=== PATIENT | female | born 1955 | race Caucasian/White ===

== ENCOUNTER 2023-01-25 11:50 | Emergency (ER) | payer OTHER, SELFPAY ==
[2023-01-25 11:51] VITALS: BP 135/68; PULSE 83; RESP 16; TEMP 36.6; O2SAT 96; BMI 27.1
--- NOTE | 2023-01-25 12:28 | CT_ITS ---
STUDY: CT BRAIN WITHOUT CONTRAST REASON FOR EXAM: Female, 67 years old. Visual loss in right eye x three days RADIATION DOSAGE (If Supplied By Facility): CTDIvol = ( 44.99 ) mGy, DLP = ( 779.24 ) mGycm TECHNIQUE: Transaxial CT imaging of the brain was performed without administration of intravenous contrast material. Individualized dose optimization techniques were used for this CT. COMPARISON: No relevant priors. FINDINGS: Normal soft tissue structures. Normal calvarium. Normal size ventricles and extra-axial spaces for the patient''s age. Normal white matter tracts of the cerebral hemispheres. Normal basal ganglia and thalami. Normal brainstem. Normal cerebellum. There is no intracranial hemorrhage. There are no findings of an acute ischemic infarction. Normal visualized paranasal sinuses. CT/Brain/Head without Contrast IMPRESSION: Normal unenhanced CT scan of the brain. Electronically Signed: Bill Douglas MD at 13:34 EDT ,
[2023-01-25] MEDS: 0.9% Normal Saline 1,000 ML 1000 ML IV (12:40)
[2023-01-25 12:53] LABS: Absolute Lymphocyte Count 1.46 X10^3/uL (0.83-4.51); Absolute Neutrophil Count 4.4 X10^3/uL (2.0-7.7); Basophil# 0.05 X10^3/uL; Basophil% 0.8 % (0-1); Eosinophil# 0.14 X10^3/uL; Eosinophils% 2.2 % (0-5); Hematocrit 38.4 % (37-47); Hemoglobin 12.4 g/dL (12.0-15.0); Lymphocyte # 1.46 X10^3/ul (0.83-4.51); Lymphocyte % 22.7 % (19-41); Mean Corp Hgb Conc 32.3 g/dL (32-36); Mean Corpuscular Hgb 30.1 pg (27.0-32.0); Mean Corpuscular Volume 93.2 fL (81-99); Monocyte# 0.34 X10^3/uL; Monocyte% 5.3 % (0-10); NRBC Flagged by Analyzer 0 % (0-5); Neutrophil # 4.44 X10^3/uL (2.7-7.7); Neutrophil % 68.8 % (47-70); Platelet Count 257 K/mm3 (150-450); RBC Distribution Width CV 14.4 % (11.6-14.6); RBC Distribution Width SD 49.2 fl (35.1-43.9); Red Blood Count 4.12 M/mm3 (4.2-5.4); White Blood Count 6.4 K/mm3 (4.4-11.0)
--- NOTE | 2023-01-25 13:04 | EX.ED.VIS.EY ---
HPI History of Present Illness Chief Complaint: Eye Problem Informant: patient Onset/Context/Timing Location: Right Eye Onset: Days (2) Context: Gradual Onset Timing: Continuous Worsened by: Nothing Relieved by: Nothing Associated Symptoms Associated Symptoms - Eyes: Foreign body sensation; Negative for Burning, Crusting, Drainage, Eyelid swelling, Itching, Matting, Pain, Photophobia or Redness Visual Changes: right: Visual field cut History of injury: No Visual correction: Glasses Narrative Narrative: Patient presents with visual loss from her right eye that occurred 2 days ago. Patient states it came on gradually. Patient states she lost the peripheral vision in her eyes and then she states that her vision went completely black. Patient states that today it looks like it is a tannish-red area with a white rim around the lower portion of her vision. Patient denies any headaches. Patient states she normally wears glasses. Patient denies any trauma or injury. However, patient does state that it feels like there may be something in her eye. Patient denies any paresthesias or weakness. Patient went to urgent care and was referred to the emergency department because they were unable to see a red reflex out of her right eye. PFSH PFSH Medical History no medical history no medical history Allergy/AdvReac Type Severity Reaction Status Date / Time No Known Allergies Allergy Verified 01/25/23 11:54 Surgical History no surgical history no surgical history Social History Smoking Status: Never smoker ROS ROS ED Constitutional Constitutional ED: Denies chills or fever(s) Eyes Eyes: Reports change in vision; Denies diplopia ENT ENT ED: Denies rhinorrhea or sore throat Cardiovascular Cardiovascular: Denies chest pain or palpitations Respiratory/Chest Respiratory/Chest: Denies cough or dyspnea Gastrointestinal Gastrointestinal: Denies nausea or vomiting Genitourinary Genitourinary ED: Denies dysuria or hematuria Musculoskeletal Musculoskeletal: Denies back pain or neck pain Integumentary Denies abscess or rash Neurologic Neurologic: Reports headache(s); Denies weakness Allergic/Immunologic Allergic/Immunologic ED: Denies mouth swelling or urticaria EXAM Physical Exam Const Vital Signs: 01/25/23 11:51 Temperature 97.8 F Temperature Source Temporal Pulse Rate 83 Respiratory Rate 16 Blood Pressure 135/68 H Blood Pressure Mean 90 Pulse Ox 96 Oxygen Delivery Method Room Air Positive well nourished and well developed General Appearance ED: well developed and NAD HEENT Reports moist mucous membranes HEENT Narrative: There is no tenderness over the temporal artery. Negative for tenderness Eyes Eyes Narrative: Pupils are equal, round, and reactive to light bilaterally. Extraocular muscles are intact. Anterior chamber was clear. There is no hyphema. There is a red reflex noted bilaterally. Funduscopic examination shows some pallor to the lateral retina. There is a questionable retinal detachment noted over that area. Neck supple and no JVD Resp normal respiratory effort and clear to auscultation bilaterally Cardio regular rate, regular rhythm and no murmurs GI normal to inspection, nondistended, normoactive bowel sounds and non-tender Palpation: soft Extremity normal to inspection General Extremety ED: Negative for edema or tenderness General Extremity: Negative for edema Neuro oriented x3, CN's II-XII intact bilaterally and no sensory deficits noted Sensorium / Orientation: alert Motor Exam: strength 5/5 throughout Psych mental status grossly normal Skin no rashes or lesions noted MDM MDM MDM Narrative Medical decision making narrative: Differential diagnosis includes retinal detachment, stroke, central retinal artery occlusion, and retinal vein occlusion. CT scan of the brain will be obtained to assess for stroke. CBC will be obtained to assess for leukocytosis and anemia. Comprehensive metabolic profile will be obtained to assess for electrolyte abnormality, renal function, and hepatic function. PT with INR and PTT will be obtained to assess for coagulopathy. Lab Data Attestation: I reviewed the patient's lab results. Lab results narrative: CBC was reviewed and was essentially within normal limits. Comprehensive metabolic profile was reviewed and was within normal limits. Labs: Laboratory Results - last 24 hr 01/25/23 12:40 WBC 6.4 RBC 4.12 L Hgb 12.4 Hct 38.4 MCV 93.2 MCH 30.1 MCHC 32.3 RDW Std Deviation 49.2 H RDW Coeff of Alli 14.4 Plt Count 257 MPV 9.0 Immature Gran % (Auto) 0.200 Neut % (Auto) 68.8 Lymph % (Auto) 22.7 [place] % (Auto) 5.3 Eos % (Auto) 2.2 Baso % (Auto) 0.8 Absolute Neuts (auto) 4.4 Absolute Lymphs (auto) 1.46 Nucleated RBC % 0 Treatment and Re-Evaluation Narrative: [id number] ultrasound was performed. There is evidence of a retinal detachment. Lens was in place. Case was discussed with Dr. Riggs from ophthalmology. He will see the patient today in his office. Patient was instructed to go directly there. Patient understood and was agreeable with the plan. All questions were answered. Discharge Plan Triage Chief Complaint: Eye Problem ED Provider: Darrian Venegas Dx/Rx/DC Orders Clinical Impression: Retinal detachment, right Instructions: ED Retinal Detachment Primary Care Provider: Care Physician,No Primary Referrals: Nithin Riggs MD [Med Staff - Active Staff] - As soon as possible Care Physician,No Primary [Primary Care Provider] - Activity Restrictions/Additional Instructions: Go directly to the [facility]. Dr. Riggs, title insurance agent will see you there at 345. Disposition Disposition: Home, Self Care Discharge Date/Time: 01/25/23 15:39
[2023-01-25 13:09] LABS: International Normalized Ratio 0.9; Partial Thromboplast Time 28.2 Seconds (24.1-36.2); Prothrombin Time (Protime)PT. 12.5 SECONDS (11.7-14.9)
[2023-01-25 13:10] LABS: ALB/GLOB Ratio 1.1 RATIO (0.9-2.4); AST(SGOT) 16 U/L (15-37); Alanine Aminotransfer ALT/SGPT 23 U/L (13-56); Albumin, Serum 3.5 g/dL (3.2-5.0); Alkaline Phosphatase 67 U/L (45-117); Anion Gap 2 (5-15); BUN 11 mg/dL (7-18); Calcium,Total 9.2 mg/dL (8.5-10.1); Chloride 109 mmol/L (98-107); Creatinine, Serum 0.65 mg/dL (0.55-1.02); EST Glomerular Filtration Rate 97 mL/min (>60); Est Glom Filt Rate - Afr Amer 117 mL/min (>60); Estimated Creatinine Clearance 38.68 ml/min; Globulin 3.2 g/dL (2.2-4.2); Glucose 89 mg/dL (74-106); Potassium 4.2 mmol/L (3.5-5.1); Protein, Total 6.7 g/dL (6.4-8.2); Sodium Level 141 mmol/L (136-145)
[2023-01-25 14:00] VITALS: RESP 16
== END 2023-01-25 15:39 | disposition home or self-care (01) ==
PROVIDERS: Emergency Provider Emergency Medicine; Visit Provider Emergency Medicine
DX: H33.21 Serous retinal detachment, right eye (principal)
CPT/HCPCS: 70450; 80053; 85025; 85610; 85730; 99283; J7030; A4216

== ENCOUNTER → 2023-05-26 | Outpatient (CLI) | payer OTHER, SELFPAY ==
--- NOTE | 2023-05-26 12:37 | BD_ITS ---
STUDY: DUAL ENERGY X-RAY ABSORPTIOMETRY / DXA REASON FOR EXAM: Female, 67 years old. S52.571D TECHNIQUE: Bone Mineral Density (BMD) measurements of lumbar spine and bilateral hips were obtained. COMPARISON: None. FINDINGS: Lumbar Spine (L1-L4): g/cm2 (0.993) / T-score (-0.5) / Z-score (1.5) Findings are suggestive of normal bone density with a low fracture risk. Left Femur Total: g/cm2 (0.740) / T-score (-1.7) / Z-score (-0.2) Left Femoral Neck: g/cm2 (0.601) / T-score (-2.2) / Z-score (-0.5) Right Femur Total: g/cm2 (0.656) / T-score (-2.3) / Z-score (-0.9) Right Femoral Neck: g/cm2 (0.560) / T-score (-2.6) / Z-score (-0.9) BD/Dexa Bone Density Study IMPRESSION: The patient is considered osteoporotic as outlined below according to World Tyrese Organization (WHO) criteria with a high fracture risk. Reference Information: The T-score is the number of standard deviations above or below the standard which is normal for young adults at their peak bone mineral density. The World Health Organization (WHO) interprets the T-scores as follows: Above -1 Normal bone density Between -1 and -2.5 Osteopenia Equal to / or below -2.5 Osteoporosis As a practical clinical guideline, osteopenia may be graded as follows: Mild -1 through -1.5 Moderate -1.6 through -2.0 Severe -2.1 through -2.4 The Z-score is the number of standard deviations above or below age-matched controls. A Z-score of less than -1.5 would be considered abnormal. References: 1. NIH Osteoporosis and Related Bone Diseases www osteo.org 2. International Society for Clinical Densitometry www iscd.org 3. National Osteoporosis Foundation www nof.org Electronically Signed: Fabio Patel MD at 13:29 EDT ,
== END | disposition home or self-care (01) ==
LOC: OPBD 12:32
PROVIDERS: Referring Provider Student in an Organized Health Care Education/Training Program; Visit Provider Student in an Organized Health Care Education/Training Program
DX: S52.571D Other intraarticular fracture of lower end of right radius, subsequent encounter for closed fracture with routine healing (principal)
CPT/HCPCS: 77080

== ENCOUNTER 2023-11-10 20:43 | Inpatient (IN) | payer OTHER, MEDICARE, SELFPAY ==
[2023-11-10 20:43] VITALS: BP 156/83; PULSE 80; RESP 16; TEMP 36.2; O2SAT 99
--- NOTE | 2023-11-10 20:46 | RAD_ITS ---
STUDY: X-RAY - PELVIS AND RIGHT HIP REASON FOR EXAM: Female, 68 years old. injury TECHNIQUE: 3 views of the pelvis and hip. COMPARISON: None. FINDINGS: There is a non-specific bowel gas pattern. Normal visualized soft tissue structures. Normal bilateral iliac wings, sacroiliac joints and visualized sacrum. Normal bilateral superior and inferior pubic rami. Normal pubic symphysis. Normal bilateral ischial tuberosities. Acute nondisplaced fracture of the intertrochanteric femur. Normal acetabulum. Normal hip joint. RAD/HIP, UNI W/ Pelvis 2-3 Views IMPRESSION: Acute nondisplaced fracture of the intertrochanteric femur. Electronically Signed: Bill Douglas MD at 21:20 EDT ,
--- NOTE | 2023-11-10 21:26 | RAD_ITS ---
STUDY: X-RAY CHEST REASON FOR EXAM: Female, 68 years old. Preop TECHNIQUE: Single AP portable view of the chest. COMPARISON: None. FINDINGS: The lungs are clear and expanded. There is no demonstrated pleural abnormality. Normal size heart. Normal mediastinum and jovanny. Normal visualized pulmonary arteries. Normal visualized aortic arch and descending thoracic aorta. Normal visualized thoracic spine. Normal visualized ribs, clavicles, and shoulders. There is no demonstrated abnormality of the visualized soft tissue structures of the upper abdomen. RAD/Chest 1 View (Portable) IMPRESSION: Normal x-ray examination of the chest. Electronically Signed: Bill Douglas MD at 21:59 EDT ,
[2023-11-10] MEDS: Morphine 2 MG/ML Syringe IV (21:42)
[2023-11-10] MEDS: Ondansetron 4 MG/2 ML Vial IV (21:42)
[2023-11-10 21:46] VITALS: BP 145/78; PULSE 90; RESP 18; O2SAT 98
[2023-11-10 21:50] LABS: Absolute Lymphocyte Count 2.02 X10^3/uL (0.83-4.51); Absolute Neutrophil Count 5.8 X10^3/uL (2.0-7.7); Basophil# 0.06 X10^3/uL; Basophil% 0.7 % (0-1); Eosinophil# 0.17 X10^3/uL; Hematocrit 38.3 % (37-47); Hemoglobin 12.4 g/dL (12.0-15.0); Lymphocyte # 2.02 X10^3/ul (0.83-4.51); Lymphocyte % 23.7 % (19-41); Mean Corp Hgb Conc 32.4 g/dL (32-36); Mean Corpuscular Hgb 29.8 pg (27.0-32.0); Mean Corpuscular Volume 92.1 fL (81-99); Mean Platelet Vol. 9.3 fl (6.2-12.0); Monocyte# 0.44 X10^3/uL; Monocyte% 5.2 % (0-10); NRBC Flagged by Analyzer 0 % (0-5); Neutrophil # 5.81 X10^3/uL (2.7-7.7); Neutrophil % 67.9 % (47-70); Platelet Count 281 K/mm3 (150-450); RBC Distribution Width CV 13.8 % (11.6-14.6); Red Blood Count 4.16 M/mm3 (4.2-5.4); White Blood Count 8.5 K/mm3 (4.4-11.0)
--- NOTE | 2023-11-10 21:51 | ED.VIS.LOWEX ---
HPI History of Present Illness Chief Complaint: Lower Extremity Injury Detail of Chief Complaint: Patient injured her right hip status post fall Informant: patient and spouse/S.O. Occured/Mechanism Mechanism/Context: Yes injury, Yes blunt trauma and Yes fall Comment: Patient was walking up steps. She landed on the right side of her hip. Onset/Context/Timing Onset: Hours Context: Sudden Onset Timing: Continuous Quality of Pain: Aching Location: Right groin Current Severity: Gone Maximum Severity: Moderate Worsened by: Logrolling Relieved by: Remaining still Associated Symptoms Associated Symptoms: Positive for Loss of Funtion; Negative for Parasthesia or Weakness Narrative Narrative: Patient is 68-year-old woman. She has no past medical history. She is on no medication. She has no allergies. She presents after fall. She was unable to bear weight on her right side. She states she landed on the right trochanteric region. She complains of pain in the right inguinal area. Denies paresthesia, anesthesia motors. She denies head trauma. Denies loss of conscious. Denies neck pain. Denies paresthesia, anesthesia medics. Denies chest pain or shortness of breath. Denies abdominal pain. Tetanus Immunization: Unknown Prior similar symptoms: No Recent Illness/Hospitalization: No PFSH PFSH Medical History no medical history no medical history Home Medications NK 11/10/23 [History Last Taken Unknown] Allergy/AdvReac Type Severity Reaction Status Date / Time No Known Allergies Allergy Verified 11/10/23 20:46 Social History Smoking Status: Never smoker ROS ROS ED Constitutional Constitutional ED: Denies fever(s), subjective or sweats Eyes Eyes: Denies blurry vision or change in vision ENT ENT ED: Denies rhinorrhea or sore throat Cardiovascular Cardiovascular: Denies chest pain or palpitations Respiratory/Chest Respiratory/Chest: Denies cough, dyspnea or dyspnea on exertion Gastrointestinal Gastrointestinal: Denies abdominal pain, nausea or vomiting Genitourinary Genitourinary ED: Denies dysuria, hematuria or urinary frequency Musculoskeletal Musculoskeletal: Denies arthralgias, back pain, myalgias or neck pain Integumentary Denies rash Neurologic Neurologic: Denies headache(s), paresthesias or weakness Psychiatric Psychiatric: Denies anxiety or depression Endocrine Endocrinology: Denies polydipsia, polyphagia or polyuria Hematologic/Lymphatic Hematologic/Lymphatic: Denies easy bleeding or easy bruising EXAM Physical Exam Const Vital Signs: 11/10/23 20:43 11/10/23 21:46 Temperature 97.1 F L Temperature Source Temporal Pulse Rate 80 90 Respiratory Rate 16 18 Blood Pressure 156/83 H 145/78 H Blood Pressure Mean 107 100 Pulse Ox 99 98 Oxygen Delivery Method Room Air Room Air Positive well nourished and well developed General Appearance ED: well developed and NAD HEENT normocephalic and atraumatic Eyes PERRL Eyes Narrative: Extraocular muscles are intact. Sclera is anicteric. There is no subconjunctival hemorrhage. Neck full ROM and supple Chest Wall inspection of chest normal and palpation of chest normal Resp normal respiratory effort, no retractions and clear to auscultation bilaterally Cardio regular rate, regular rhythm, S1 normal heart sound, S2 normal heart sound and no murmurs GI non-tender, non-distended and no masses Back/Spine no CVA tenderness Thoracic Spine / Upper Back: Negative for thoracic spinal tenderness Lumbar Spine / Lower Back: Negative for lumbar spinal tenderness Extremity Extremity Narrative: There is no shortening. Logrolling causes discomfort. There is no neurovasc optimized. Neuro oriented x3, CN's II-XII intact bilaterally, moves all extremities and no sensory deficits noted Sensorium / Orientation: alert Motor Exam: strength 5/5 throughout Psych mental status grossly normal Skin no wounds Lesions: no lesions Rashes: no rashes MDM MDM Lab Data Attestation: I reviewed the patient's lab results. Lab results narrative: CBC is unremarkable. BMP is unremarkable. Labs: Laboratory Results - last 24 hr 11/10/23 21:40 WBC 8.5 RBC 4.16 L Hgb 12.4 Hct 38.3 MCV 92.1 MCH 29.8 MCHC 32.4 RDW Std Deviation 47.0 H RDW Coeff of Alli 13.8 Plt Count 281 MPV 9.3 Immature Gran % (Auto) 0.500 Neut % (Auto) 67.9 Lymph % (Auto) 23.7 [place] % (Auto) 5.2 Eos % (Auto) 2.0 Baso % (Auto) 0.7 Absolute Neuts (auto) 5.8 Absolute Lymphs (auto) 2.02 Nucleated RBC % 0 Sodium 138 Potassium 4.1 Chloride 103 Carbon Dioxide 31.0 Anion Gap 4 L BUN 19 H Creatinine 0.75 Est GFR (MDRD) Af Amer 99 Est GFR (MDRD) Non-Af 82 BUN/Creatinine Ratio 25.4 H Glucose 109 H Calcium 9.3 Radiography Chest X-Ray - ED: 1 View (Single view portable chest x-ray was independently reviewed by me and negative for pneumothorax, hemothorax fractured ribs. Cardiac silhouette size normal. Lung parenchyma is normal.) and Read by ED Physician (Three-view x-ray of the right hip reveals a intertrochanteric fracture.) Diagnostic Testing: Clinical Impression(s) from Imaging Studies Hip/Pelvis X-Ray 11/10/23 20:46 IMPRESSION: Acute nondisplaced fracture of the intertrochanteric femur. Electronically Signed: Bill Douglas MD at 21:20 EDT Reading Location ID and State: [employer] / [employer] Tel , Service support , Chest X-Ray 11/10/23 21:26 IMPRESSION: Normal x-ray examination of the chest. Electronically Signed: Bill Douglas MD at 21:59 EDT Reading Location ID and State: [id number] / [employer] , Service support , Management Discussion w/another healthcare provider: Hospitalist and [employer] Treatment and Re-Evaluation Narrative: Appropriate blood work, chest x-ray was obtained for prehospital risk stratification. Will contact hospitalist for admission and Dr. Becker and for orthopedics. Dr. John Paul Chan and was made aware of patient. Patient be admitted to hospitalist service Discharge Plan Dx/Rx/DC Orders Clinical Impression: Injury due to fall, Elevated blood pressure reading, Closed intertrochanteric fracture of right femur Disposition Disposition: Acute Care Hospital [facility]
[2023-11-10 22:03] LABS: Anion Gap 4 (5-15); BUN 19 mg/dL (7-18); BUN/Creat Ratio 25.4 RATIO (10-20); Calcium,Total 9.3 mg/dL (8.5-10.1); Chloride 103 mmol/L (98-107); Creatinine, Serum 0.75 mg/dL (0.55-1.02); EST Glomerular Filtration Rate 82 mL/min (>60); Est Glom Filt Rate - Afr Amer 99 mL/min (>60); Glucose 109 mg/dL (74-106); Potassium 4.1 mmol/L (3.5-5.1); Sodium Level 138 mmol/L (136-145)
--- NOTE | 2023-11-10 22:13 | HP.PCM.HOS_ITS ---
HPI - General General Date of Admission: 11/10/23 HPI Narrative NILAY RIGGINS, is a 68 F who presents to the hospital after mechanical fall coming out of her barn. She fell on her right side and could not put any weight on it. She denies hitting her head or any loss of consciousness. She denies any chest pain palpitations or lightheadedness prior to the fall and states that it was purely a mechanical fall. She has no significant medical history and takes no medications. Hip x-ray demonstrates an acute nondisplaced fracture of the intertrochanteric femur on the right. [facility] Medical History no medical history Home Medications NK 11/10/23 [History Last Taken Unknown] Allergy/AdvReac Type Severity Reaction Status Date / Time No Known Allergies Allergy Verified 11/10/23 20:46 Family History (Updated 11/10/23 @ 22:[address] Bernard Roman MD) Other Heart disease Surgical History (Updated 11/10/23 @ 22:[address] Bernard Roman MD) Status post wrist surgery Social History Smoking Status: Never smoker ROS Constitutional Constitutional: Denies chills, fatigue, fever(s) or malaise Eyes Eyes: Denies blurry vision ENT HEENT: Denies headache(s) or nasal discharge Cardiovascular Cardiovascular: Denies chest pain, dyspnea on exertion or syncope Respiratory/Chest Respiratory/Chest: Denies cough, shortness of breath at rest or shortness of breath with exertion Gastrointestinal Gastrointestinal: Denies constipation, diarrhea, nausea or vomiting Genitourinary Genitourinary: Denies dysuria Musculoskeletal Musculoskeletal: Reports joint pain Neurologic Neurologic: Denies focal weakness, numbness or tremor(s) Psychiatric Psychiatric: Denies anxiety or depression Vital Signs Vital Signs Vital Signs: 11/10/23 20:43 11/10/23 21:46 Temperature 97.1 F L Temperature Source Temporal Pulse Rate 80 90 Respiratory Rate 16 18 Blood Pressure 156/83 H 145/78 H Blood Pressure Mean 107 100 Pulse Ox 99 98 Oxygen Delivery Method Room Air Room Air Physical Exam Narrative General: Alert, Oriented x3, Cooperative, No apparent distress HEENT: Atraumatic, PERRLA, EOMI, Normocephalic Oral: Moist Mucosa Neck: Supple, No JVD Lungs: Clear to auscultation, Normal air movement, No rhonchi, No wheeze, No rales Cardiovascular: Regular rate, Regular Rhythm, Normal S1, Normal S2, No murmurs Abdomen: Soft, Non Tender, Non-Distended, No Hepato-splenomegaly Extremities: No edema, Capillary Refill Less than 3 Seconds Skin: No rashes, No breakdown Musculoskeletal: Mild tenderness to right hip with palpation Neurological: No focal neurological deficits, Motor Exam 5/5 strength throughout, Sensory exam intact to light touch and pain Psych/Mental Status: Normal Affect, Appropriate Results Lab / Micro Data 11/10/23 21:40 11/10/23 21:40 Labs: Laboratory Results - last 24 hr 11/10/23 21:40: WBC 8.5, RBC 4.16 L, Hgb 12.4, Hct 38.3, MCV 92.1, MCH 29.8, MCHC 32.4, RDW Std Deviation 47.0 H, RDW Coeff of Alli 13.8, Plt Count 281, MPV 9.3, Immature Gran % (Auto) 0.500, Neut % (Auto) 67.9, Lymph % (Auto) 23.7, [place] % (Auto) 5.2, Eos % (Auto) 2.0, Baso % (Auto) 0.7, Absolute Neuts (auto) 5.8, Absolute Lymphs (auto) 2.02, Nucleated RBC % 0, Sodium 138, Potassium 4.1, Chloride 103, Carbon Dioxide 31.0, Anion Gap 4 L, BUN 19 H, Creatinine 0.75, Est GFR (MDRD) Af Amer 99, Est GFR (MDRD) Non-Af 82, BUN/Creatinine Ratio 25.4 H, Glucose 109 H, Calcium 9.3 Imaging Radiology Impression Hip/Pelvis X-Ray 11/10/23 20:46 IMPRESSION: Acute nondisplaced fracture of the intertrochanteric femur. Electronically Signed: Bill Douglas MD at 21:20 EDT , Chest X-Ray 11/10/23 21:26 IMPRESSION: Normal x-ray examination of the chest. Electronically Signed: Bill Douglas MD at 21:59 EDT , Assessment & Plan Assessment/Plan (1) Closed intertrochanteric fracture of right femur: PLAN: Plan 1. Nondisplaced intertrochanteric fracture of the right femur status post mechanical fall ? Make n.p.o. at midnight ? Plan for orthopedic repair in the morning ? Low risk ? Continue with pain management ? PT/OT after surgery ? Consult to case management for discharge planning DVT: SCDs Charges/Coding Visit Charges Inpatient E&M: 84830 Init Hosp L2
[2023-11-10 22:35] VITALS: BP 155/79; PULSE 68; RESP 16; TEMP 36.9; O2SAT 100
--- NOTE | 2023-11-10 22:41 | CON.PCM.OR_ITS ---
HPI Consult Data Date of Consult: 11/10/23 HPI Narrative HPI Narrative: NILAY RIGGINS, is a 68 F who presents with a right hip fracture. Patient fell at home down a couple steps. No head injury or loss of consciousness. Patient unable to ambulate after this injury. Patient does not normally use any ambulatory aids. [facility] Medical History no medical history Home Medications NK 11/10/23 [History Last Taken Unknown] Allergy/AdvReac Type Severity Reaction Status Date / Time No Known Allergies Allergy Verified 11/10/23 20:46 Family History (Updated 11/10/23 @ 22:[address] Bernard Roman MD) Other Heart disease Surgical History (Updated 11/10/23 @ 22:[address] Bernard Roman MD) Status post wrist surgery Social History Smoking Status: Never smoker Vital Signs Vital Signs Vital Signs: 11/10/23 20:43 11/10/23 22:35 11/10/23 21:46 Temperature 97.1 F L 98.4 F Temperature Source Temporal Pulse Rate 80 68 90 Respiratory Rate 16 16 18 Blood Pressure 156/83 H 155/79 H 145/78 H Blood Pressure Mean 107 104 100 Pulse Ox 99 100 98 Oxygen Delivery Method Room Air Room Air Physical Exam Const alert, oriented x3, no apparent distress and well nourished General Appearance: cooperative and well developed Extremity normal capillary refill and no calf tenderness Extremity Narrative: Closed injury. Right hip pain. Normal motor and sensory function to the foot able to wiggle the toes dorsiflex and plantarflex the foot. Foot is warm and well-perfused. Lab / Micro Data 11/10/23 21:40 11/10/23 21:40 Labs: Laboratory Results - last 24 hr 11/10/23 21:40: WBC 8.5, RBC 4.16 L, Hgb 12.4, Hct 38.3, MCV 92.1, MCH 29.8, MCHC 32.4, RDW Std Deviation 47.0 H, RDW Coeff of Alli 13.8, Plt Count 281, MPV 9.3, Immature Gran % (Auto) 0.500, Neut % (Auto) 67.9, Lymph % (Auto) 23.7, [place] % (Auto) 5.2, Eos % (Auto) 2.0, Baso % (Auto) 0.7, Absolute Neuts (auto) 5.8, Absolute Lymphs (auto) 2.02, Nucleated RBC % 0, Sodium 138, Potassium 4.1, Chloride 103, Carbon Dioxide 31.0, Anion Gap 4 L, BUN 19 H, Creatinine 0.75, Est GFR (MDRD) Af Amer 99, Est GFR (MDRD) Non-Af 82, BUN/Creatinine Ratio 25.4 H, Glucose 109 H, Calcium 9.3 Imaging Radiology Impression Hip/Pelvis X-Ray 11/10/23 20:46 IMPRESSION: Acute nondisplaced fracture of the intertrochanteric femur. Electronically Signed: Bill Douglas MD at 21:20 EDT Reading Location ID and State: [facility] / [employer] Tel , Service support , Chest X-Ray 11/10/23 21:26 IMPRESSION: Normal x-ray examination of the chest. Electronically Signed: Bill Douglas MD at 21:59 EDT Reading Location ID and State: [id number] / [employer] Tel , Service support , I independently reviewed the imaging. Concur with radiologist report. Assessment & Plan Assessment/Plan (1) Closed intertrochanteric fracture of right femur: PLAN: 68-year-old female with a right intertrochanteric hip fracture. I dis cussed with the patient the diagnosis prognosis different treatment options including doing nothing versus surgery in the form of open reduction internal fixation with the CM/intramedullary nail. Patient will be admitted under the hospitalist service made n.p.o. at midnight. I discussed the case with the dye house hand they are unable to give me a time but they are aware of the case. They are cleared for surgery I discussed directly with the hospitalist. Bedrest for now. Plan for surgery tomorrow at some point. Risks of surgery discussed as well as a high risk generally of nonoperative treatment including high risk of fracture not healing difficulties with ambulation blood clots and pneumonia. Patient signed the consent form for right hip open reduction internal fixation I marked the right lower extremity. Pros and cons risks and benefits were discussed with the patient including but not limited to infection, pain, stiffness, bleeding, damage to surrounding structures, neurovascular injury, recurrence or retear, failure or wear of hardware or fixation, instability, fracture, deep vein thrombosis and pulmonary embolism, anesthetic risks, , patient dissatisfaction, need for further surgery and other risks. Patient understood and wished to proceed with surgery, and signed the informed consent documentation.
[2023-11-10 22:55] VITALS: BMI 28.0
[2023-11-10 22:57] VITALS: BP 150/81; PULSE 97; RESP 18; TEMP 36.6; O2SAT 98
[2023-11-11] VITALS (15 sets, daily range): BP systolic 125–160; BP diastolic 68–97; PULSE 83–115; RESP 16–18; TEMP 36.1–37; O2SAT 93–102
[2023-11-11] MEDS: oxyCODONE 5 MG Tablet PO ×2 (00:08→23:58)
[2023-11-11 05:14] LABS: Bacteria 0 SEEN /hpf (None Seen); Mucous, Urine 0 SEEN /hpf (<or=2+); Red Blood Cells-Urine 0 SEEN /hpf (0-5); Squamous Epithelial Cells - UA 0 SEEN /hpf (5-10); White Blood Cells 0 SEEN /hpf (0-5)
[2023-11-11 05:15] LABS: Color, Urine Yellow (Yellow); Glucose, Dipstick Normal (Normal); Ketone-Dipstick Negative (Negative); Leukocyte Esterase-Dipstick 25 /ul (Negative); Nitrite-Dipstick Negative (Negative); Occult Blood-Urine Negative /ul (Negative); Protein-Dipstick Negative (Negative); Specific Gravity, Urine 1.015 (1.002-1.030); Urine Bilirubin Dipstick Negative (Negative); Urine Clarity Clear (Clear); Urine Urobilinogen Normal (Normal)
--- NOTE | 2023-11-11 05:55 | EKG12_ITS ---
Test Reason : PREOP Blood Pressure : / mmHG Vent. Rate : 088 BPM Atrial Rate : 088 BPM P-R Int : 126 ms QRS Dur : 088 ms QT Int : 390 ms P-R-T Axes : 041 014 006 degrees QTc Int : 471 ms Normal sinus rhythm Normal ECG No previous ECGs available Confirmed by NANCY BUCIO, BRIANNE ([id number]), film editor ANNETTA VILLALOBOS ([id number]) on 11/21/2023 1:17:11 PM Referred By: Confirmed By:KARTHIK CRUZ MD
[2023-11-11 05:59] LABS: Absolute Neutrophil Count 6.1 X10^3/uL (2.0-7.7); Basophil# 0.04 X10^3/uL; Basophil% 0.5 % (0-1); Eosinophil# 0.07 X10^3/uL; Eosinophils% 0.9 % (0-5); Hematocrit 34.9 % (37-47); Hemoglobin 11.3 g/dL (12.0-15.0); Mean Corp Hgb Conc 32.4 g/dL (32-36); Mean Corpuscular Hgb 29.5 pg (27.0-32.0); Mean Corpuscular Volume 91.1 fL (81-99); Mean Platelet Vol. 9.1 fl (6.2-12.0); Monocyte# 0.52 X10^3/uL; Monocyte% 6.5 % (0-10); NRBC Flagged by Analyzer 0 % (0-5); Neutrophil # 6.14 X10^3/uL (2.7-7.7); Neutrophil % 76.6 % (47-70); Platelet Count 245 K/mm3 (150-450); RBC Distribution Width CV 13.6 % (11.6-14.6); RBC Distribution Width SD 46.1 fl (35.1-43.9); Red Blood Count 3.83 M/mm3 (4.2-5.4)
[2023-11-11 06:20] LABS: Anion Gap 4 (5-15); BUN 14 mg/dL (7-18); BUN/Creat Ratio 21.7 RATIO (10-20); Calcium,Total 8.9 mg/dL (8.5-10.1); Chloride 103 mmol/L (98-107); Creatinine, Serum 0.65 mg/dL (0.55-1.02); EST Glomerular Filtration Rate 97 mL/min (>60); Est Glom Filt Rate - Afr Amer 117 mL/min (>60); Estimated Creatinine Clearance 55.76 ml/min; Glucose 117 mg/dL (74-106); Potassium 3.9 mmol/L (3.5-5.1); Sodium Level 134 mmol/L (136-145)
--- NOTE | 2023-11-11 06:30 | RAD_ITS ---
PROCEDURE: Intraoperative fluoroscopic imaging. DATE OF EXAMINATION: November 11, 2023. INDICATION: Female, 68 years old. Right intertrochanteric fracture. RAD/Hip 1 view with Pelvis IMPRESSION: Intraoperative imaging provided for open reduction and internal fixation of the right intertrochanteric fracture utilizing screw and intramedullary sergio fixation device. There is satisfactory reduction. Electronically Signed: Fabio Patel MD at 9:11 EDT ,
--- NOTE | 2023-11-11 07:29 | PN.ORTHO_ITS ---
Subjective Subjective PAD 1 right hip fracture, downstairs for surgery this morning as add on. doing well, no change overnight. no questions or concerns. Objective Data Objective Data Vital Signs: Vital Signs Temp Pulse Resp BP Pulse Ox O2 Del Method 98.5 F 100 16 131/82 H 100 Room Air 11/11/23 07:04 11/11/23 07:04 11/11/23 07:04 11/11/23 07:04 11/11/23 07:04 11/11/23 07:04 Oxygen Delivery Method Room Air Weight: 142 lb 2.08 oz Body Mass Index (BMI) 28.0 Intake & Output: Intake and Output for Last 24 Hours 11/09/23 11/10/23 11/11/23 23:59 23:59 23:59 Output Total 250 / 250 Balance -250 / -250 Lab / Micro Data 11/11/23 05:35 11/11/23 05:35 Labs: Laboratory Results - last 24 hr 11/10/23 21:40: WBC 8.5, RBC 4.16 L, Hgb 12.4, Hct 38.3, MCV 92.1, MCH 29.8, MCHC 32.4, RDW Std Deviation 47.0 H, RDW Coeff of Alli 13.8, Plt Count 281, MPV 9.3, Immature Gran % (Auto) 0.500, Neut % (Auto) 67.9, Lymph % (Auto) 23.7, [place] % (Auto) 5.2, Eos % (Auto) 2.0, Baso % (Auto) 0.7, Absolute Neuts (auto) 5.8, Absolute Lymphs (auto) 2.02, Nucleated RBC % 0, Sodium 138, Potassium 4.1, Chloride 103, Carbon Dioxide 31.0, Anion Gap 4 L, BUN 19 H, Creatinine 0.75, Est GFR (MDRD) Af Amer 99, Est GFR (MDRD) Non-Af 82, BUN/Creatinine Ratio 25.4 H, G lucose 109 H, Calcium 9.3, Antibody Screen NEGATIVE 11/11/23 05:00: Urine Color Yellow, Urine Clarity Clear, Urine pH 6.0, Ur Specific [place] 1.015, Urine Protein Negative, Urine Glucose (UA) Normal, Urine Ketones Negative, Urine Occult Blood Negative, Urine Nitrite Negative, Urine Bilirubin Negative, Urine Urobilinogen Normal, Ur Leukocyte Esterase 25 H, Urine RBC 0 SEEN, Urine WBC 0 SEEN, Ur Squamous Epith Cells 0 SEEN, Urine Bacteria 0 SEEN, Urine Mucus 0 SEEN 11/11/23 05:35: WBC 8.0, RBC 3.83 L, Hgb 11.3 L, Hct 34.9 L, MCV 91.1, MCH 29.5, MCHC 32.4, RDW Std Deviation 46.1 H, RDW Coeff of Alli 13.6, Plt Count 245, MPV 9.1, Immature Gran % (Auto) 0.500, Neut % (Auto) 76.6 H, Lymph % (Auto) 15.0 L, [place] % (Auto) 6.5, Eos % (Auto) 0.9, Baso % (Auto) 0.5, Absolute Neuts (auto) 6.1, Absolute Lymphs (auto) 1.20, Nucleated RBC % 0, Sodium 134 L, Potassium 3.9, Chloride 103, Carbon Dioxide 27.0, Anion Gap 4 L, BUN 14, Creatinine 0.65, Estim Creat Clear Calc 55.76, Est GFR (MDRD) Af Amer 117, Est GFR (MDRD) Non-Af 97, BUN/Creatinine Ratio 21.7 H, Glucose 117 H, Calcium 8.9 Radiography Diagnostic Testing: Radiology Impression Hip/Pelvis X-Ray 11/10/23 20:46 IMPRESSION: Acute nondisplaced fracture of the intertrochanteric femur. Electronically Signed: Bill Douglas MD at 21:20 EDT Reading Location ID and State: [id number] / [employer] Tel , Service support , Chest X-Ray 11/10/23 21:26 IMPRESSION: Normal x-ray examination of the chest. Electronically Signed: Bill Douglas MD at 21:59 EDT , Assessment & Plan Assessment/Plan (1) Closed intertrochanteric fracture of right femur: PLAN: 68 F with 2 part IT fracture. Plan for synthes short CM nail. OK to proceed. No changes to h and p.
[2023-11-11] MEDS: Lactated Ringers 1,000 ML 15 ML IV (07:41)
[2023-11-11] MEDS: Cefazolin 2 GM in 0.9% Normal Saline (100mL Bag) 100 ML IV (07:44)
[2023-11-11] MEDS: TXA 1000mg in NS100 100ml (IVPB at Closure) 660 MG IV (07:45)
[2023-11-11] MEDS: TXA 1000mg in NS100 100ml (IVPB at Incision) 660 MG IV (07:50)
[2023-11-11] MEDS: Bupivacaine 0.25% 30 ML Vial (08:54)
--- NOTE | 2023-11-11 09:06 | PCM.OPRPT ---
Problems Associated Problem List Diagnoses (1) Closed intertrochanteric fracture of right femur: Report of Operation Date of Procedure: 11/11/23 Pre-Operative Diagnosis: R hip fracture Post-Operative Diagnosis: same Surgery/Procedure Performed:: Right hip ORIF Description of Surgical Findings:: Surgeon: John Paul Becker Type of Anesthesia: General and Local Anesthesiologist: Jigar Iqbal Estimated Blood Loss (mL): 50 Description of Procedure: Patient brought to the operating room theater. Transferred to the fracture table. General anesthesia induced. 1 g IV tranexamic acid given at the start as well as at the end of the case. 2 g IV Ancef administered prior to start of the case. All bony prominences padded. Perineal post appropriately padded. Right lower extremity in traction with internal rotation. Left lower extremity appropriately padded at the peroneal nerve as well as on the medial side in scissoring position attached to the post of the bed. Lower extremity prepped and draped in the usual sterile fashion with chlorhexidine-based prep solution allowing over 3 minutes drying time prior to draping. Shower curtain style [place]an drape was used. Preoperative timeout performed to confirm the site patient and the surgery. Began by taking AP lateral radiographs to confirm appropriate reduction of the fracture site. This appeared to be a 2 part intertrochanteric hip fracture. Well aligned and reduced. I inserted the partially-threaded 3.2 mm guidewire at the tip of the trochanter on both AP and lateral radiographs aiming towards the lesser trochanter on the AP radiograph and down the femoral canal on the lateral radiograph. Used a soft tissue sleeve. Made a percutaneous incision over the guidewire. Protected the soft tissues. Used the entry reamer down to the level lesser trochanter. I selected a Synthes short 170 mm TFN?a nail with 130 degree neck shaft angle. I inserted this down to an appropriate level. I used the 130 degree drop-down percutaneous guide. Again using a small incision I passed the guidewire up center center slightly inferior and posterior in the neck down to the subchondral bone of the femoral head at the tip of the femoral head ensuring a good tip to apex distance. This measured 96 mm. I reamed up to a size 95 mm and inserted a 95 mm helical blade. I locked this proximally. I then turned my attention distally. I drilled using the 4.2 mm drill bit and inserted a 38 mm long 5.0 mm fully threaded cortical screw through the distal interlock hole of the nail. Inserting guide was then removed final AP lateral radiographs taken to ensure appropriate reduction and nail position. Thorough irrigation was then performed. Subcutaneous tissue closed with 2-0 Vicryl suture and skin with 3-0 Monocryl. Skin cleaned with wet and dry dressing followed application of Steri-Strips 10 cc of quarter percent bupivacaine instilled in around the incision site. Skin cleaned with wet and dry dressing followed by application of silver Mepilex border dressing. Patient woken up from the general anesthetic transferred off the operating table and taken to postanesthetic care unit in stable condition. All sponge needle motion counts were correct no complications. Plan for the patient admitted under the hospitalist service to the hospital weightbearing as tolerated and follow-up in the office in 2 weeks time. cpt 83102? Complications none Admit VTE Documentation VTE Present on Admission: No VTE Mechan Device Prophylaxis: SCD's VTE Pharm Prophylaxis ordered?: Yes Procedures Musculoskeletal [id number]: Other Procedure See Report
--- NOTE | 2023-11-11 11:29 | PCM.PN.HOSP ---
Reason for Visit Reason for Visit: Diagnoses Displaced intertrochanteric fracture of right femur, initial encounter for closed fracture (11/10/23) Subjective Subjective Patient presented yesterday evening with a right hip fracture after a mechanical fall at home. Had right hip ORIF done with Dr. Becker this morning. I saw patient at the bedside on the floor shortly after she arrived back up from the OR. She was laying comfortably in bed and breathing comfortably on room air at that time. Appeared mildly fatigued but otherwise was alert and oriented and answering all questions appropriately. She denied any right hip pain or discomfort at that time. Denied any fevers or chills. Had no other acute concerns at this time. Objective Data Objective Data Vital Signs: Vital Signs Temp Pulse Resp BP Pulse Ox O2 Del Method 97.2 F L 88 16 128/75 H 93 Room Air 11/11/23 10:30 11/11/23 10:30 11/11/23 10:30 11/11/23 10:30 11/11/23 10:30 11/11/23 10:30 Oxygen Delivery Method Room Air Weight: 64.469 kg Body Mass Index (BMI) 28.0 Intake & Output: Intake and Output for Last 24 Hours 11/09/23 11/10/23 11/11/23 23:59 23:59 23:59 Intake Total 330 / 330 Output Total 250 / 250 Balance 80 / 80 Lab / Micro Data 11/11/23 05:35 11/11/23 05:35 Labs: Laboratory Results - last 24 hr 11/10/23 21:40: WBC 8.5, RBC 4.16 L, Hgb 12.4, Hct 38.3, MCV 92.1, MCH 29.8, MCHC 32.4, RDW Std Deviation 47.0 H, RDW Coeff of Alli 13.8, Plt Count 281, MPV 9.3, Immature Gran % (Auto) 0.500, Neut % (Auto) 67.9, Lymph % (Auto) 23.7, [place] % (Auto) 5.2, Eos % (Auto) 2.0, Baso % (Auto) 0.7, Absolute Neuts (auto) 5.8, Absolute Lymphs (auto) 2.02, Nucleated RBC % 0, Sodium 138, Potassium 4.1, Chloride 103, Carbon Dioxide 31.0, Anion Gap 4 L, BUN 19 H, Creatinine 0.75, Est GFR (MDRD) Af Amer 99, Est GFR (MDRD) Non-Af 82, BUN/Creatinine Ratio 25.4 H, Glucose 109 H, Calcium 9.3, Antibody Screen NEGATIVE 11/11/23 05:00: Urine Color Yellow, Urine Clarity Clear, Urine pH 6.0, Ur Specific [place] 1.015, Urine Protein Negative, Urine Glucose (UA) Normal, Urine Ketones Negative, Urine Occult Blood Negative, Urine Nitrite Negative, Urine Bilirubin Negative, Urine Urobilinogen Normal, Ur Leukocyte Esterase 25 H, Urine RBC 0 SEEN, Urine WBC 0 SEEN, Ur Squamous Epith Cells 0 SEEN, Urine Bacteria 0 SEEN, Urine Mucus 0 SEEN 11/11/23 05:35: WBC 8.0, RBC 3.83 L, Hgb 11.3 L, Hct 34.9 L, MCV 91.1, MCH 29.5, MCHC 32.4, RDW Std Deviation 46.1 H, RDW Coeff of Alli 13.6, Plt Count 245, MPV 9.1, Immature Gran % (Auto) 0.500, Neut % (Auto) 76.6 H, Lymph % (Auto) 15.0 L, [place] % (Auto) 6.5, Eos % (Auto) 0.9, Baso % (Auto) 0.5, Absolute Neuts (auto) 6.1, Absolute Lymphs (auto) 1.20, Nucleated RBC % 0, Sodium 134 L, Potassium 3.9, Chloride 103, Carbon Dioxide 27.0, Anion Gap 4 L, BUN 14, Creatinine 0.65, Estim Creat Clear Calc 55.76, Est GFR (MDRD) Af Amer 117, Est GFR (MDRD) Non-Af 97, BUN/Creatinine Ratio 21.7 H, Glucose 117 H, Calcium 8.9 Radiography Diagnostic Testing: Radiology Impression Hip/Pelvis X-Ray 11/10/23 20:46 IMPRESSION: Acute nondisplaced fracture of the intertrochanteric femur. Electronically Signed: Bill Douglas MD at 21:20 EDT , Chest X-Ray 11/10/23 21:26 IMPRESSION: Normal x-ray examination of the chest. Electronically Signed: Bill Douglas MD at 21:59 EDT , Hip/Pelvis X-Ray 11/11/23 06:30 IMPRESSION: Intraoperative imaging provided for open reduction and internal fixation of the right intertrochanteric fracture utilizing screw and intramedullary sergio fixation device. There is satisfactory reduction. Electronically Signed: Fabio Patel MD at 9:11 EDT , Physical Exam Const alert, oriented x3 and no apparent distress Constitutional Narrative: Pleasant elderly female, laying comfortably in bed, mildly fatigued appearing but otherwise conversing normally, no acute distress. General Appearance: cooperative and comfortable HEENT normocephalic, head/scalp atraumatic, hearing grossly normal bilaterally, nasal mucous membranes and turbinates normal and moist oral mucous membranes Eyes PERRL, EOMs intact bilaterally and conjunctivae normal Neck full ROM Chest inspection of chest normal Resp normal respiratory effort, normal air movement, no use of accessory muscles and clear to auscultation bilaterally Cardio regular rate, regular rhythm, no murmurs and peripheral pulses 2+ throughout GI normal to inspection, nondistended, normoactive bowel sounds, soft to palpation, non-tender and non-distended Back/Spine normal ROM Extremity Extremity Narrative: Right hip dressing in place over incision site with ice pack also in place. Skin no rashes or lesions noted Neuro no focal motor deficits and no sensory deficits noted Speech: speech normal Psych mental status grossly normal Assessment & Plan Assessment/Plan (1) Closed intertrochanteric fracture of right femur: (2) Elevated blood pressure reading: (3) Anemia: PLAN: Plan Patient is a 68-year-old female who presented [facility] ED on 11/10/2023 with right hip pain after a fall at home. 1. Closed intertrochanteric fracture of right femur ? Orthopedics following. S/p right hip ORIF with Dr. Becker on 11/10. Patient tolerated procedure well, no intraoperative complications. PT/OT/case management following. Continue scheduled Tylenol, p.o. oxycodone and IV Dilaudid as needed for pain control. Lovenox for DVT prophylaxis. Appreciate orthopedic recommendations regarding further pain control and DVT prophylaxis. Vitamin D level ordered. 2. Mild normocytic anemia ? Hemoglobin 12.4 on admit, down to 11.3 on hospital day 2 prior to procedure. Only other hemoglobin value in system was 12.4 in 01/2023. Iron studies, B12 and folate ordered. Trend daily CBC. 3. Elevated BP readings ? No reported history of hypertension. Has had mildly elevated BP readings with systolics in the 130s to 150s. Monitor, no need to add antihypertensive therapy at this time. DVT prophylaxis: Lovenox CODE STATUS: Full code, verified Expected disposition: SNF versus home with home health care, TBD Total clinical time spent by myself addressing the patient's medical issues, reviewing all the data, and collaborating with patient's care team: 35 minutes. Charges/Coding Visit Charges Inpatient E&M: 88573 Subs Hosp L2
--- NOTE | 2023-11-11 11:44 | CASEMGMT ---
RN?CM?CMA?CM?to room to meet with patient for initial transition planning/care coordination?assessment.?RN?CM?introduced self and role at [facility].? Pt voices understanding and consents to?assessment?at this time.? Pt resting in bed in no distress at this time.? @ bedside. Pt is awake initially and able to answer most answers questions appropriately.??She did fall asleep on/off during assessment. provided information at times. Care providers, pharmacy, and demographics verified/updated at this time. PCP: Germán Lobo, COLLECTION CARD CLERK @ [facility] Phys[facility] Specialists: none Preferred Pharmacy: [facility] Insurance: [employer] Prescription Benefit:?yes LNOK: , Benjamin. 2 sons: Ziyad Living Arrangements: Lives w/her and son, Cricket, in 2-story home w/basement and ramp entrance. [employer]. Indep @ baseline w/ADL's and IADL's. states he has been W/C bound for 47-yrs. Transportation:?both sons drive DME: ?Has the following DME but does not use: walker and W/C HHC/SNF: No hx of either. Discussed discharge planning, including SNF and HHC. states they plan to take pt home and can provide 24/7 care and would be able to have 2 people available to assist her, if needed. declines wanting any HHC for therapy either. He was made aware of insurance benefits for both SNF (including 3 [place] in-patient rule) and HHC. PT/OT evals pending. made aware CM will follow after recommendations received. denies having any further discharge planning needs at this time. PLAN:??Home w/family support and discharge plans in place. Stephan KELLYN?RN?CM
[2023-11-11] MEDS: Acetaminophen 500 MG Tablet 1000 MG PO ×2 (14:03→21:09)
[2023-11-11] MEDS: Ondansetron 4 MG/2 ML Vial IV (14:05)
[2023-11-11 17:38] LABS: Vitamin B12 578 pg/mL (211-911); Vitamin D,25 Hydroxy 36.7 ng/mL
[2023-11-11 18:15] LABS: Ferritin 360 ng/mL (8-252); Iron 21 ug/dL (50-170); Iron Binding Capacity,Total 329 ug/dL (250-450); PERCENT IRON SATURATION 6.4 % (15.0-55.0)
[2023-11-12 02:36] VITALS: BP 116/62; PULSE 80; RESP 16; TEMP 36.6; O2SAT 98
[2023-11-12] MEDS: Acetaminophen 500 MG Tablet 1000 MG PO ×3 (06:05→22:01)
[2023-11-12] MEDS: Ondansetron 4 MG/2 ML Vial IV (06:06)
[2023-11-12] MEDS: 0.9% Saline Lock 10 ML Syringe IV (06:06)
[2023-11-12 06:29] VITALS: BP 122/83; PULSE 79; RESP 16; TEMP 36.7; O2SAT 95
[2023-11-12 06:34] LABS: Hematocrit 33.4 % (37-47); Hemoglobin 10.9 g/dL (12.0-15.0); Mean Corp Hgb Conc 32.6 g/dL (32-36); Mean Corpuscular Hgb 30.2 pg (27.0-32.0); Mean Corpuscular Volume 92.5 fL (81-99); Mean Platelet Vol. 9.5 fl (6.2-12.0); Platelet Count 209 K/mm3 (150-450); RBC Distribution Width CV 13.6 % (11.6-14.6); RBC Distribution Width SD 46.6 fl (35.1-43.9); Red Blood Count 3.61 M/mm3 (4.2-5.4); White Blood Count 6.5 K/mm3 (4.4-11.0)
[2023-11-12 07:00] LABS: Anion Gap 5 (5-15); BUN 10 mg/dL (7-18); BUN/Creat Ratio 16.2 RATIO (10-20); Calcium,Total 8.4 mg/dL (8.5-10.1); Chloride 105 mmol/L (98-107); Creatinine, Serum 0.62 mg/dL (0.55-1.02); EST Glomerular Filtration Rate 102 mL/min (>60); Est Glom Filt Rate - Afr Amer 123 mL/min (>60); Estimated Creatinine Clearance 55.62 ml/min; Glucose 106 mg/dL (74-106); Potassium 3.9 mmol/L (3.5-5.1); Sodium Level 138 mmol/L (136-145)
[2023-11-12 12:04] VITALS: BP 104/66; PULSE 87; RESP 16; TEMP 36.9; O2SAT 98
--- NOTE | 2023-11-12 12:54 | CASEMGMT ---
Addendum entered by Penny Myers 11/12/23 15:39: Spoke [facility] pt and spouse, C [facility]. [facility], 3rd [facility]. Referrals sent via [facility]port and call placed to [facility]. Penny SEBASTIAN, RN, CCM Original Note: Met with pt and spouse at bedside. Discussed with patient how she did with therapy. Answered all questions from pt and spouse regarding levels of care. Patient agreeable to [facility]. Patient was provided a list of [facility] providers including quality and resource use data and consistent with the patient?s preferred geographic region, medical needs, and insurance network were provided from the CarePort Guide. Penny SEBASTIAN, RN, CCM
[2023-11-12] MEDS: Rivaroxaban 10 MG Tablet PO (17:17)
--- NOTE | 2023-11-12 17:25 | PCM.PN.HOSP ---
Reason for Visit Reason for Visit: Diagnoses Anemia, unspecified (11/10/23) Elevated blood-pressure reading, without diagnosis of hypertension (11/10/23) Displaced intertrochanteric fracture of right femur, initial encounter for closed fracture (11/10/23) Subjective Subjective Patient was seen and examined today, she states her hip does not bother her unless she gets up out of bed into a chair or she walks, otherwise she states it does not cause much discomfort. Patient states that her plan is to go home after she is discharged from the hospital rather than go to a nursing facility. Objective Data Objective Data Vital Signs: Vital Signs Temp Pulse Resp BP Pulse Ox O2 Del Method 98.4 F 87 16 104/66 98 Room Air 11/12/23 12:04 11/12/23 12:04 11/12/23 12:04 11/12/23 12:04 11/12/23 12:04 11/12/23 12:04 Oxygen Delivery Method Room Air Weight: 64.469 kg Body Mass Index (BMI) 28.0 Intake & Output: Intake and Output for Last 24 Hours 11/10/23 11/11/23 11/12/23 23:59 23:59 23:59 Intake Total 1200 / 1200 Output Total 950 / 950 Balance 250 / 250 Lab / Micro Data 11/12/23 05:46 11/12/23 05:46 Labs: Laboratory Results - last 24 hr 11/11/23 16:50: Iron 21 L, TIBC 329, Iron Saturation 6.4 L, Ferritin 360 H, Vitamin B12 578, Vitamin D 25-Hydroxy 36.7, Folate 24.20 11/12/23 05:46: WBC 6.5, RBC 3.61 L, Hgb 10.9 L, Hct 33.4 L, MCV 92.5, MCH 30.2, MCHC 32.6, RDW Std Deviation 46.6 H, RDW Coeff of Alli 13.6, Plt Count 209, MPV 9.5, Sodium 138, Potassium 3.9, Chloride 105, Carbon Dioxide 28.0, Anion Gap 5, BUN 10, Creatinine 0.62, Estim Creat Clear Calc 55.62, Est GFR (MDRD) Af Amer 123, Est GFR (MDRD) Non-Af 102, BUN/Creatinine Ratio 16.2, Glucose 106, Calcium 8.4 L Physical Exam Const alert, oriented x3, no apparent distress, average body habitus and healthy appearing General Appearance: cooperative, well kempt and well developed Orientation / Consciousness: awake, oriented to person, oriented to place and oriented to time HEENT normocephalic, head/scalp atraumatic and moist oral mucous membranes Eyes PERRL, EOMs intact bilaterally and conjunctivae normal Neck supple, no JVD, thyroid normal and no carotid bruits General: trachea midline Resp normal respiratory effort, no retractions, no use of accessory muscles and clear to auscultation bilaterally Auscultation: Negative for rales, rhonchi or wheezes Cardio regular rate, regular rhythm, S1 normal heart sound, S2 normal heart sound, no murmurs, no rub and no gallops GI normal to inspection, nondistended, normoactive bowel sounds, soft to palpation, non-tender and non-distended Extremity no clubbing, cyanosis or edema Neuro oriented x3, CN's II-XII intact bilaterally, moves all extremities, no focal motor deficits and no sensory deficits noted Sensorium / Orientation: awake and alert Speech: speech normal Psych affect normal Assessment & Plan Assessment/Plan (1) Closed intertrochanteric fracture of right femur: PLAN: Plan 1. Intertrochanteric fracture of the right hip secondary to osteoporosis-postop day 1 intramedullary nail insertion right hip-continue PT and OT, I explained to the patient that we could not set up any home health this weekend and that we would have to do it this Tuesday. #2 acute blood loss anemia as an expected consequence from right hip fracture-patient does not need a blood transfusion at this time, hemoglobin would be monitored as needed Total clinical time spent by myself addressing the patient's medical issues, reviewing all of her data, and collaborating with patient's care team: 25 minutes Charges/Coding Visit Charges Inpatient E&M: 32119 [facility] [[email or web address]] Hosp L1
--- NOTE | 2023-11-12 19:10 | PCM.PN.ORT ---
Subjective Subjective POD 1 right hip ORIF for IT hip fracture. doing well. lots of family here at the bed side. only some mild pain when up ambulating. Objective Data Objective Data Vital Signs: Vital Signs Temp Pulse Resp BP Pulse Ox O2 Del Method 98.4 F 87 16 104/66 98 Room Air 11/12/23 12:04 11/12/23 12:04 11/12/23 12:04 11/12/23 12:04 11/12/23 12:04 11/12/23 12:04 Oxygen Delivery Method Room Air Weight: 142 lb 2.08 oz Body Mass Index (BMI) 28.0 Intake & Output: Intake and Output for Last 24 Hours 11/10/23 11/11/23 11/12/23 23:59 23:59 23:59 Intake Total 1200 / 1200 Output Total 950 / 950 Balance 250 / 250 Lab / Micro Data Attestation: I reviewed the patient's lab results. 11/12/23 05:46 11/12/23 05:46 Labs: Laboratory Results - last 24 hr 11/12/23 05:46: WBC 6.5, RBC 3.61 L, Hgb 10.9 L, Hct 33.4 L, MCV 92.5, MCH 30.2, MCHC 32.6, RDW Std Deviation 46.6 H, RDW Coeff of Alli 13.6, Plt Count 209, MPV 9.5, Sodium 138, Potassium 3.9, Chloride 105, Carbon Dioxide 28.0, Anion Gap 5, BUN 10, Creatinine 0.62, Estim Creat Clear Calc 55.62, Est GFR (MDRD) Af Amer 123, Est GFR (MDRD) Non-Af 102, BUN/Creatinine Ratio 16.2, Glucose 106, Calcium 8.4 L Physical Exam Const alert, oriented x3 and no apparent distress General Appearance: cooperative and well developed HEENT normocephalic Extremity Extremity Narrative: drsg dry, intact, nvi, df and pf foot, warm well perfused, no hip pain, sitting comfortably in a recliner. Assessment & Plan Assessment/Plan (1) Closed intertrochanteric fracture of right femur: PLAN: 68 F POD 1 right hip ORIF. Doing well. no concerns. WBAT. FU next week as outpatient. OK to leave dressing on and shower over top.
[2023-11-12 20:25] VITALS: BP 107/65; PULSE 82; RESP 12; TEMP 36.6; O2SAT 98
[2023-11-12 22:00] VITALS: BP 110/66; PULSE 79; RESP 12; TEMP 36.7; O2SAT 98
[2023-11-13 02:25] VITALS: BP 110/70; PULSE 75; RESP 12; TEMP 36.6; O2SAT 98
[2023-11-13 04:00] VITALS: BP 110/66; PULSE 75; RESP 13; TEMP 36.6; O2SAT 99
[2023-11-13] MEDS: Acetaminophen 500 MG Tablet 1000 MG PO ×3 (06:31→21:06)
[2023-11-13 08:25] VITALS: BP 118/66; PULSE 74; RESP 18; TEMP 36.8; O2SAT 98
[2023-11-13] MEDS: oxyCODONE 5 MG Tablet PO (08:47)
--- NOTE | 2023-11-13 12:13 | PCM.PN.HOSP ---
Reason for Visit Reason for Visit: Diagnoses Anemia, unspecified (11/10/23) Elevated blood-pressure reading, without diagnosis of hypertension (11/10/23) Displaced intertrochanteric fracture of right femur, initial encounter for closed fracture (11/10/23) Subjective Subjective Patient was seen and examined today, I discussed home-going plans with her today, I will contact case management and social worker masters tomorrow regarding possible discharge tomorrow if she is medically stable. Objective Data Objective Data Vital Signs: Vital Signs Temp Pulse Resp BP Pulse Ox O2 Del Method 98.3 F 74 18 118/66 98 Room Air 11/13/23 08:25 11/13/23 08:25 11/13/23 08:25 11/13/23 08:25 11/13/23 08:25 11/13/23 10:00 Oxygen Delivery Method Room Air Weight: 64.469 kg Body Mass Index (BMI) 28.0 Intake & Output: Intake and Output for Last 24 Hours 11/11/23 11/12/23 11/13/23 23:59 23:59 23:59 Intake Total 1200 / 1200 579 / 579 Output Total 950 / 950 Balance 250 / 250 579 / 579 Lab / Micro Data 11/12/23 05:46 11/12/23 05:46 Physical Exam Narrative alert, oriented x3, no apparent distress, average body habitus and healthy appearing General Appearance: cooperative, well kempt and well developed Orientation / Consciousness: awake, oriented to person, oriented to place and oriented to time HEENT normocephalic, head/scalp atraumatic and moist oral mucous membranes Eyes PERRL, EOMs intact bilaterally and conjunctivae normal Neck supple, no JVD, thyroid normal and no carotid bruits General: trachea midline Resp normal respiratory effort, no retractions, no use of accessory muscles and clear to auscultation bilaterally Auscultation: Negative for rales, rhonchi or wheezes Cardio regular rate, regular rhythm, S1 normal heart sound, S2 normal heart sound, no murmurs, no rub and no gallops GI normal to inspection, nondistended, normoactive bowel sounds, soft to palpation, non-tender and non-distended Extremity no clubbing, cyanosis or edema Neuro oriented x3, CN's II-XII intact bilaterally, moves all extremities, no focal motor deficits and no sensory deficits noted Sensorium / Orientation: awake and alert Speech: speech normal Psych affect normal Assessment & Plan Assessment/Plan (1) Closed intertrochanteric fracture of right femur: PLAN: Plan 1. Intertrochanteric fracture of the right hip secondary to osteoporosis-postop day 2 intramedullary nail insertion right hip-continue PT and OT, I explained to the patient that we could not set up any home health this and that we would have to do it this Tuesday. #2 acute blood loss anemia as an expected consequence from right hip fracture-patient does not need a blood transfusion at this time, hemoglobin would be monitored as needed Total clinical time spent by myself addressing the patient's medical issues, reviewing all of her data, and collaborating with patient's care team: 25 minutes Charges/Coding Visit Charges Inpatient E&M: 03173 [facility] Hosp L1
[2023-11-13 16:00] VITALS: BP 122/69; PULSE 90; RESP 18; TEMP 36.8; O2SAT 98
[2023-11-13] MEDS: Rivaroxaban 10 MG Tablet PO (17:28)
[2023-11-13 21:04] VITALS: BP 114/63; PULSE 96; RESP 16; TEMP 36.6; O2SAT 99
[2023-11-14 02:17] VITALS: BP 125/66; PULSE 84; RESP 18; TEMP 36.6; O2SAT 99
[2023-11-14] MEDS: Acetaminophen 500 MG Tablet 1000 MG PO (06:16)
--- NOTE | 2023-11-14 09:25 | PCM.DC ---
Discharge Instructions Diet Discharge Diet: No restrictions Activity Discharge Activity: Return to Normal Activity Weight Bearing Status: Weight bearing as tolerated Follow Up Care Test Results: Test results from this visit will be discussed in further detail at your follow-up appointment, if applicable. Discharge Plan Admission Admit Date/Time: 11/10/23 22:10 Primary Reason for Your Visit: Right hip fracture Attending Provider: Alexandre Hill Primary Care Provider: ANDRES NEAL Consulting Providers: John Paul Becker; Alexandre Hill; Wellington Denson Discharge Orders/Prescriptions Prescriptions: New Xarelto 10 mg Tablet 10 mg PO DINNER Qty: 30 0RF No Action NK Referrals / Follow Up: Wellington Denson DO [Med Staff - Active Staff] - Within 1 Week (this or Tuesday) NOT,DEFINED [Non-Staff] - ANDRES NEAL, REGULATORY AFFAIRS ANALYST-C [Primary Care Provider] - Disposition Disposition (needs filled in before D/C Order can be placed): Home Health Service
--- NOTE | 2023-11-14 09:35 | PCM.DC.SUM ---
Providers Date of Admission: 11/10/23 Date of Discharge: 11/14/23 Primary Care Physician: ANDREA AHUJA Consultations 11/10/23 22:53 Consult: Orthopedics Routine Consulting Provider: John Paul Becker Reason for Consult: Hip fx EMERGENT Consult: No MD Notified: Yes Date Notified: 11/10/23 Time Notified: 22:12 Method of Notification: ED Physician Initiated Reason For Visit: HIP FX Diagnosis Discharge Diagnosis (1) Closed intertrochanteric fracture of right femur: Status: Acute Code(s): S72.141A - Displaced intertrochanteric fracture of right femur, initial encounter for closed fracture Plan 1. Intertrochanteric fracture of the right hip secondary to osteoporosis-postop day 2 intramedullary nail insertion right hip-continue PT and OT, I explained to the patient that we could not set up any home health this and that we would have to do it this Tuesday. #2 acute blood loss anemia as an expected consequence from right hip fracture-patient does not need a blood transfusion at this time, hemoglobin would be monitored as needed Total clinical time spent by myself addressing the patient's medical issues, reviewing all of her data, and collaborating with patient's care team: 25 minutes Medications at Discharge Home Medications NK 11/10/23 rivaroxaban 10 mg tablet (Xarelto) 10 mg PO DINNER #30 tabs 11/14/23 Hospital Course Operations - (Intramedullary nail insertion right hip ORIF-11/11/2023) Procedures None Summary of Care Provided Minutes Spent on Discharge: 31 Hospital Course: This 68-year-old white female was seen in the emergency room at [facility] with complaints of right hip pain after having mechanical fall at home. She was unable to bear weight after the fall, patient denied any syncope. Workup in the emergency room included x-rays which showed a closed intertrochanteric fracture of the right femur. Patient's labs were unremarkable. Patient was admitted to [place] [address], she was seen by PT and OT, and she was seen by orthopedic surgery, patient was taken for ORIF of the right hip fracture which was carried out using a gamma nail. Patient did well after the surgery and had no complications, patient desired to go home rather than go to a skilled care facility and she requested home rehab services. On 11/14/2023, patient was seen and examined: On examination she appeared in good health and spirits, she does not appear to be in any distress. Vital signs as documented. Skin warm and dry and without overt rashes. Neck without JVD, thyroid appears normal, trachea is midline, neck is supple. Lungs clear, normal air movement was noted. Heart exam notable for regular rhythm, normal sounds and absence of murmurs, rubs or gallops. Abdomen unremarkable and without evidence of organomegaly, masses, or abdominal aortic enlargement, bowel sounds are present in all 4 quadrants, no abdominal tenderness was noted. Extremities nonedematous, no cyanosis was noted, no clubbing was noted. Neuro: Cranial nerves II through XII are grossly intact, no focal motor deficits were noted, sensation to light touch and pinprick is intact, motor exam 5/5 throughout. Psych: Patient is alert and oriented x3, she does not appear anxious or depressed, she does not appear agitated. Patient was felt to be stable for discharge on 11/14/2023. I notified Dr. Becker's office through Dr. Reardon that the patient was being discharged today. Weight / BMI Weight Weight: 64.469 kg Body Mass Index (BMI) 28.0 ABG / Lab / Microbiology Data 11/12/23 05:46 11/12/23 05:46 D/C Instructions Discharge Diet: No restrictions Weight Bearing Status: Weight bearing as tolerated Meaningful Use Info Meaningful Use Meaningful Use Diagnoses (Choose all that apply): None applicable Ischemic Stroke Statin Dosing Therapy Reference: STATIN DOSE THERAPY REFERENCE: * Patients > 75 years receive moderate or high dose statin therapy. * Patients 75 years or YOUNGER should receive HIGH intensity statin dose unless contraindicated. You will be required to document reason for non-treatment if statin daily dose does not meet guidelines. HIGH DOSE STATIN THERAPY DAILY Atorvastatin > than or = to 40 mg Rosuvastatin > than or = to 20 mg Amlodipine + Atorvastatin > than or = to 2.5/40 mg Ezetimibe + Simvastatin 10/80 mg Simvastatin 80mg Discharge Plan Admission Admit Date/Time: 11/10/23 22:10 Primary Reason for Your Visit: Right hip fracture Attending Provider: Alexandre Hill Primary Care Provider: ANDRES NEAL Consulting Providers: John Paul Becker; Alexandre Hill; Wellington Denson Discharge Orders/Prescriptions Prescriptions: New Xarelto 10 mg Tablet 10 mg PO DINNER Qty: 30 0RF No Action NK Referrals / Follow Up: Wellington Denson DO [Med Staff - Active Staff] - Within 1 Week (this or Tuesday) NOT,DEFINED [Non-Staff] - ANDRES NEAL NP-C [Primary Care Provider] - Disposition Disposition (needs filled in before D/C Order can be placed): Home Health Service Charges/Coding Visit Charges Inpatient E&M: 36576 Disch Hosp >30min
[2023-11-14 10:00] VITALS: BP 134/82; PULSE 86; RESP 18; TEMP 36.5; O2SAT 98; O2SAT 99
--- NOTE | 2023-11-14 10:00 | CASEMGMT ---
Addendum entered by Ryann Cervantes 11/14/23 11:17: [facility] Called and stated [facility] is listed as Primary insurance and [employer] secondary. Deductible is $5,000, they have currently met $2,411.94. Deductible will need to be met before HH is covered. TC to registration, spoke with Mariseal, she confirms [facility] is primary. Called pt , he didn't know which is Primary, but wanted to cancel HH if there is a co-pay. Declined outpatient therapy as well. TC back to , spoke with Jina, confirmed again that [facility] is primary. Referral canceled. Addendum entered by Ryann Cervantes 11/14/23 10:44: Informed pt. that doctor changed medication and cost is no charge, she will pick up attendant at [facility] pharmacy. Let pt know we will call her with PT and OT acceptance from [facility] as her transportation is here and she cannot wait. Addendum entered by Ryann Cervantes 11/14/23 10:16: Hospitalist updated that he changed prescription to Eliquis. Called pharmacy to confirm florentino in medication and they have a savings card. The cost is 0. Addendum entered by Ryann Cervantes 11/14/23 10:11: Called the pharmacy, cost for Xarelto is $555, spoke with pt and they cannot afford this. Notified the doctor. Original Note: [facility]ey Otto does not do therapy, TC to [facility] - Left message to check on status of referral. Will await return call.
--- NOTE | 2023-11-14 10:45 | PHA.DC.MC.R ---
Pharmacy [facility] has performed discharge medication reconciliation and counseling for this patient. 1. APIXABAN 2.5MG PO BID X 30 DAYS The patient's discharge medication list was reviewed for discrepancies and discrepancies were resolved. The patient was counseled on the following discharge medications and changes in medications for homegoing were reviewed. The Reason for Use, instructions for use, and potential side effects were reviewed for all new medications. The patient's questions regarding all of their medications were answered. The patient was able to verbally demonstrate an understanding of their discharge medications. Medications at Discharge Home Medications apixaban 2.5 mg tablet (Eliquis) 2.5 mg PO BID #60 tabs 11/14/23
--- NOTE | 2023-11-14 15:38 | CASEMGMT ---
Recceived vm from Marisela at [facility] who states she received a referral this weekend for pt. She states they can accept. TC back to Marisela to make aware that pt declined HHC and to cancel referral.
== END 2023-11-14 11:09 | disposition home or self-care (01) | DRG 481 ==
LOC: ED 22:24 → MS3 22:31
PROVIDERS: Hospitalist; Orthopaedic Surgery Sports Medicine; Admitting Provider Family Medicine; Emergency Provider Emergency Medicine; PCP Nurse Practitioner Family; Visit Provider Internal Medicine
PROC: 0QS636Z Reposition Right Upper Femur with Intramedullary Internal Fixation Device, Percutaneous Approach (ICD-10-PCS; principal; 2023-11-11 07:30)
DX: M80.051A Age-related osteoporosis with current pathological fracture, right femur, initial encounter for fracture (principal); D62 Acute posthemorrhagic anemia; W18.39XA Other fall on same level, initial encounter; Z99.3 Dependence on wheelchair
CPT/HCPCS: 36415; 71045; 73501; 73502; 76000; 80048; 81001; 82306; 82607; 82728; 82746; 83540; 83550; 85025; 85027; 86850; 86900; 86901; 93005; 97110; 97116; 97162; 97166; 97530; 97535; 99285; C1776; J7120; A4216; J2405